=== PATIENT | female | born 1955 | race Caucasian/White ===

== ENCOUNTER 2019-10-22 15:37 | Emergency (ER) | payer BC, SELFPAY ==
[2019-10-22 15:38] VITALS: BP 169/75; PULSE 68; RESP 16; TEMP 38.2; O2SAT 95; BMI 26.4
--- NOTE | 2019-10-22 16:08 | HMH.EDUTC ---
[facility] Disposition Clinical Impression: Acute diarrhea, Fever in adult Upper respiratory infection Qualifiers: URI type: unspecified URI Qualified Code(s): J06.9 - Acute upper respiratory infection, unspecified Disposition: Home, Self-Care Condition on Discharge: Good Instructions: Diarrhea, DI for Nausea -- Adult, Preventing the Spread of Coronavirus Discharge Instructions Additional Instructions: *Monitor Temp, Over the counter Motrin or Tylenol as directed/as needed Tylenol every 4 hours and Motrin every 6 hours (as long as your family doctor has told you that you can take it) for fever or pain. and straight to ER if unable to lower temp less than 101.0 after medication given *Warm salt water gargles may help to soothe the throat *Throat Lozenges *Warm fluids like tea with honey may help to soothe the throat *Sleep elevated *Humidifier/Vaporizer Your throat swab was sent for culture. Those results are typically sent to your primary care. Be sure to follow up in 2-3 days with your family doctor/primary care physician if no improvement so they can review those result and treat if necessary. If you don?t have a primary care doctor, I recommend you get one but in the mean time, you will have to return to a walk in clinic Follow up IMMEDIATELY for new or worsening symptoms or no Noticeable improvement over the next 48-72 hours. 911 for difficulty breathing or swallowing ? Drink extra fluids with and between meals. If you have difficulty drinking, try very small amounts of water or suck on ice chips. ? Avoid fruit juices, as these do not replace minerals and can actually increase diarrhea. ? Children and adults can use sports drinks to replenish electrolytes. Younger children and infants should use products formulated for children, like oral rehydration solutions. ? Eat food in small amounts and let your stomach recover. ? Get lots of rest. You may feel tired or weak. ? No greasy or fried foods for the next 24-48 hours BRAT diet Bananas Rice Apples and [place] ? Make sure to drink plenty of liquids ? Return if needed ? Straight to ER if any life threatening symptoms ? You was given an outpatient order for diarrhea panel, please collect specimen and bring back to outpatient lab then call back to the [facility] or follow up with family doctor for results ? Follow up with family doctor in the next 48-72 hours if no improvement or any worsening of symptoms GO HOME, SELF QUARANTINE UNTIL RESULT BACK FROM COVID19 TEST AND THEY ARE NEGATIVE YOU WAS GIVEN HANDOUT WITH INSTRUCTIONS, MAKE SURE TO FOLLOW THOSE CALL BACK TO [facility] ON SUNDAY FOR YOUR TEST RESULTS Prescriptions: Azithromycin [Z-Miky 250mg Tab] 250 mg PO DIRECTED #6 tab Transmission Status: Pending to [facility] #[id number] Referrals: Zeferino Jacinto [Primary Care Provider] - As needed Time of Disposition: 16:44 Medical Decision Making - Prosper Inquiry Pt receiving controlled substance: No Prosper was queried for this patient: No Vital Signs: 10/22/19 15:38 Temperature 100.8 F H Temperature Source Oral Pulse Rate [Right] 68 Respiratory Rate 16 Blood Pressure [Right Arm] 169/75 H Blood Pressure Mean [Right Arm] 106 02 Sat by Pulse Oximetry 95 - Lab Data Lab results reviewed: Yes: I reviewed the patient's lab results. Lab Results 10/22/19 16:08: Influenza Type A Ag Negative, Influenza Type B Ag Negative 10/22/19 16:08: Strep Scn Rapid Clinic Negative Orders (Tests/Meds): ED MEDICATIONS Discontinued Medications Generic Name Dose Route Start Last Admin Trade Name Freq PRN Reason Stop Dose Admin Acetaminophen 650 mg 10/22/19 16:24 10/22/19 16:26 Acetaminophen 325mg Tab PO 10/22/19 16:25 650 mg ONCE ONE Administration Ibuprofen 800 mg 10/22/19 16:23 10/22/19 16:26 Motrin 400mg Tablet PO 10/22/19 16:24 800 mg ONCE ONE Administration Ondansetron HCl 4 mg 10/22/19 16:23 10/22/19 16:26 Zofran 4mg Odt SL 10/22/19 16:24 4 mg ON
[2019-10-22 16:22] LABS: UTC Influenza A Antigen Negative (Negative); UTC Strep Screen (Rapid) Negative (Negative)
[2019-10-22 16:23] LABS: UTC Influenza B Antigen Negative (Negative)
[2019-10-22 16:57] VITALS: BP 150/89; PULSE 65; RESP 20; TEMP 36.8; O2SAT 98
[2019-10-24 17:49] LABS: Covid-19 Nasal PCR Sendout Lex Not Detected
== END 2019-10-22 16:57 | disposition home or self-care (01) ==
PROVIDERS: Emergency Provider Nurse Practitioner; PCP Family Medicine
DX: J06.9 Acute upper respiratory infection, unspecified (principal); I10 Essential (primary) hypertension; Z20.828 Contact with and (suspected) exposure to other viral communicable diseases
CPT/HCPCS: 87804; 87880; 99202; U0004

== ENCOUNTER 2021-01-08 18:05 | Inpatient (IN) | payer BC, MEDICARE, SELFPAY ==
[2021-01-08] VITALS (11 sets, daily range): BP systolic 147–194; BP diastolic 83–109; PULSE 54–67; RESP 16–22; TEMP 36.7–37; O2SAT 94–99; BMI 27.3; BMI 27.4
--- NOTE | 2021-01-08 18:14 | XR_ITS ---
PROCEDURE INFORMATION: Exam: XR Chest Exam date and time: 01/08/2021 6:14 PM Age: 65 years old Clinical indication: Shortness of breath; Additional info: SOA TECHNIQUE: Imaging protocol: XR of the chest. Views: 2 views. COMPARISON: No relevant prior studies available. FINDINGS: Tubes, catheters and devices: Prominent azygos arch, suggestive of increased intravascular volume and/or increased central venous pressures. Lungs: Low lung volumes with diffuse reticular interstitial thickening. Streaky bibasal opacities, compatible with subsegmental atelectasis. No segmental consolidation. Pulmonary vascular congestion with mild interstitial pulmonary edema. Pleural spaces: Trace bilateral pleural effusions. Heart/Mediastinum: Global cardiomegaly. Bones/joints: No acute osseous abnormality. Soft tissues: Unremarkable. IMPRESSION: 1. Pulmonary vascular congestion with mild interstitial pulmonary edema and trace bilateral pleural effusions, likely cardiogenic. 2. Prominent azygos arch, suggestive of increased intravascular volume and/or increased central venous pressures. 3. Diffuse reticular interstitial thickening, compatible with viral or atypical pneumonia vs interstitial lung disease.
[2021-01-08 18:26] LABS: Basophils % 0.6 % (0.1-2.0); Eosinophils # 0.2 K/mm3 (0.0-0.4); Eosinophils % 2.7 % (0.1-12.0); Hematocrit 38.4 % (37.0-47.0); Hemoglobin 12.8 g/dL (12.2-16.2); Lymphocytes # 2.4 K/mm3 (0.7-4.5); Lymphocytes % 39.1 % (10-50); Mean Corpuscular HGB Conc 33.5 g/dL (31.8-35.4); Mean Corpuscular Hemoglobin 29.6 pg (27.0-31.2); Mean Corpuscular Volume 88.3 fl (81-99); Mean Platelet Volume 10.5 fl (7.4-10.4); Monocytes # 0.4 K/mm3 (0.1-1.0); Monocytes % 6.2 % (1.7-9.3); Neutrophils # 3.2 K/mm3 (1.8-7.8); Neutrophils % 51.4 % (37.0-80.0); Platelet Count 147 K/mm3 (142-424); Red Blood Count 4.35 M/mm3 (4.20-5.40); Red Cell Distribution Width 14.1 % (11.5-17.5); White Blood Count 6.2 K/mm3 (4.8-10.8)
--- NOTE | 2021-01-08 18:35 | ECG_ITS ---
APPROVED REPORT Exam: Resting ECG HR:62 bpm ECG Measurements Heart Rate 62 AXES TX 150 P 55 QRSd 84 QRS -30 QT 450 T -4 QTc 456 Conclusion Normal sinus rhythm Possible Left atrial enlargement Left axis deviation RSR' or QR pattern in V1 suggests right ventricular conduction delay Abnormal ECG Electronically signed by : Edwin Kent MD 01/10/2021 20:42:08
[2021-01-08 18:40] LABS: Chloride 104 mmol/L (98-107); Potassium 3.5 mmoL/L (3.5-5.1); Sodium 140 mmol/L (136-145)
[2021-01-08 18:43] LABS: Albumin Level 3.9 g/dl (3.5-5.0); Albumin/Globulin Ratio 1.5 (1.1-1.8); Alkaline Phosphatase 90 U/L (38-126); Anion Gap 10.5 mEq/L (5-15); Bilirubin,Total 0.5 mg/dl (0.2-1.3); Blood Urea Nitrogen 19 mg/dl (7-17); Calcium 8.8 mg/dl (8.4-10.2); Carbon Dioxide 29 mmol/L (22.0-30.0); Creatinine Clearance Estimated 57 mL/min (50-200); Estimated Glomerular Filt Rate 100 ml/min (>60); GFR (African American) 121 ML/MIN (>60); Globulin 2.6 g/dL (1.3-3.2); Glucose 105 mg/dl (74-100); Total Protein,Serum 6.5 g/dl (6.3-8.2)
[2021-01-08 18:46] LABS: Alanine Aminotransferase 468 U/L (12-78); Aspartate Amino Transferase 321 U/L (14-36)
--- NOTE | 2021-01-08 18:49 | HMH.EDGENADL ---
ED Disposition Condition on Discharge: Fair - Critical Care Critical Care Time: No <Chauncey Mcgowan - Last Filed: 01/08/21 20:38> <Bry Palmer - Last Filed: 01/08/21 22:30> Clinical Impression: Elevated liver enzymes, Elevated troponin Congestive heart failure Qualifiers: Heart failure type: unspecified Heart failure chronicity: acute Qualified Code(s): I50.9 - Heart failure, unspecified Back pain Qualifiers: Back pain location: thoracic back pain Chronicity: acute Back pain laterality: bilateral Qualified Code(s): M54.6 - Pain in thoracic spine Hypertension Qualifiers: Hypertension type: primary hypertension Qualified Code(s): I10 - Essential (primary) hypertension Disposition: Admitted as Observation Referrals: Provider,Referral, [Primary Care Provider] - Attestation: On 01/08/21, the high probability of a clinically significant, sudden or life threatening deterioration of the following system(s) required my full and direct attention, intervention and personal management. The time I documented below is in addition to time spent performing reported procedures but includes the following listed in this critical care notation. Medical Decision Making - Prosper Inquiry Pt receiving controlled substance: No - Lab Data Result diagrams: 01/08/21 18:19 01/08/21 18:19 - Radiology Data #1 Image(s): Chest Image Reviewed: Yes I reviewed the patient's radiology image, Yes I have reviewed radiologist's interpretation - CONNER Score for Non-Stemi Age of Patient: 60-69 years old Heart Rate: 50-69 bpm Systolic Blood Pressure: 160-199 mmHg Serum Creatinine: 0.40-0.79 mg/dl CHF [place] Class: III-Pulmonary Edema Other Risk Factors: None Non-Stemi Risk Score: 114 <Chauncey Mcgowan - Last Filed: 01/08/21 20:38> - Lab Data Lab results reviewed: Yes: I reviewed the patient's lab results. Result diagrams: 01/08/21 18:19 01/08/21 18:19 - CT Data CT Scan: Chest Time Received: 21:[address] Reviewed: Yes: I have viewed the radiologist's interpretation Preliminary Findings: Abnormal (see report ) <Bry Palmer - Last Filed: 01/08/21 22:30> Vital Signs: 01/08/21 18:12 01/08/21 18:30 Temperature 98.6 F Temperature Source Oral Pulse Rate 60 Pulse Rate [Left] 60 Respiratory Rate 22 Blood Pressure 156/93 H Blood Pressure [Left Arm] 194/109 H Blood Pressure Mean 127 Blood Pressure Mean [Left Arm] 137 02 Sat by Pulse Oximetry 99 96 Oxygen Delivery Method Room Air - Lab Data Lab Results 01/08/21 18:19: WBC 6.2, RBC 4.35, Hgb 12.8, Hct 38.4, MCV 88.3, MCH 29.6, MCHC 33.5, RDW 14.1, Plt Count 147, MPV 10.5 H, Neut % (Auto) 51.4, Lymph % (Auto) 39.1, [place] % (Auto) 6.2, Eos % (Auto) 2.7, Baso % (Auto) 0.6, Neut # (Auto) 3.2, Lymph # (Auto) 2.4, [place] # (Auto) 0.4, Eos # (Auto) 0.2, Baso # (Auto) 0.0 01/08/21 18:19: Sodium 140, Potassium 3.5, Chloride 104, Carbon Dioxide 29, Anion Gap 10.5, BUN 19 H, Creatinine 0.60, Estimated Creat Clear 57, Estimated GFR 100, Est GFR ( Amer) 121, Glucose 105 H, Calcium 8.8, Total Bilirubin 0.5, AST 321 H*, ALT 468 H*, Alkaline Phosphatase 90, Troponin I < 0.01, Total Protein 6.5, Albumin 3.9, Globulin 2.6, Albumin/Globulin Ratio 1.5 01/08/21 18:19: NT-Pro-B Natriuret Pep 940 H 01/08/21 18:19: D-Dimer 1.12 H 01/08/21 18:19: TSH 0.74, Free T4 Index 2.9 L, Thyroxine (T4) 9.3, T3 Uptake 31 01/08/21 19:27: Urine Color Straw, Urine Appearance Clear, Urine pH 7.0, Ur Specific [place] 1.010, Urine Protein Trace, Urine Glucose (UA) Negative, Urine Ketones Negative, Urine Blood Negative, Urine Nitrate Negative, Urine Bilirubin Negative, Urine Urobilinogen 0.2, Ur Leukocyte Esterase Negative, Ur Squamous Epith Cells 3-5, Urine Bacteria Trace 01/08/21 20:34: SARS-CoV-2 (PCR) Not detected, Influenza A Untype (PCR) Not detected, Influenza Type B (PCR) Not detected 01/08/21 21:08: Troponin I 0.06 H Orders (Tests/Meds): ED MEDICATIONS Discontinued Medicatio
[2021-01-08 18:56] LABS: Troponin I < 0.01 ng/ml (0.00-0.034)
[2021-01-08 19:31] LABS: D-Dimer 1.12 ug/mL (0.0-0.5)
[2021-01-08 19:35] LABS: Microscopic, Urine URINE MICROSCOPIC (MICROSCOPIC)
[2021-01-08 19:36] LABS: Appearance,Urine CLEAR (Clear); Bilirubin,Urine Negative (Negative); Blood, Urine Negative (Negative); Color,Urine STRAW (Yellow); Glucose,Urine (UA) Negative (Negative); Ketones,Urine Negative (Negative); Leukocyte Esterase,Urine Negative (Negative); Nitrate,Urine Negative (Negative); Protein,Urine TRACE (Negative); Urobilinogen,Urine 0.2 EU/dl (0.2)
[2021-01-08 19:37] LABS: NT Pro Brain Natriuretic Pep. 940 pg/mL (0-125)
--- NOTE | 2021-01-08 19:44 | CT_ITS ---
PROCEDURE INFORMATION: Exam: CTA Chest With Contrast Exam date and time: 01/08/2021 7:44 PM Age: 65 years old Clinical indication: Shortness of breath; Additional info: SOA, elev d-dimer, R/O pe TECHNIQUE: Imaging protocol: Computed tomographic angiography of the chest with contrast. 3D rendering (Not supervised by radiologist): MIP and/or 3D reconstructed images were created by the technologist. Radiation optimization: All CT scans at this facility use at least one of these dose optimization techniques: automated exposure control; mA and/or kV adjustment per patient size (includes targeted exams where dose is matched to clinical indication); or iterative reconstruction. Contrast material: ISOVUE; Contrast volume: 70 ml; Contrast route: INTRAVENOUS (IV); COMPARISON: CR XR CHEST 2V 01/08/2021 6:16 PM FINDINGS: Pulmonary arteries: Dilated central pulmonary arteries. No pulmonary emboli. Aorta: Ascending aortic ectasia. Mild amount of calcified and non-calcified arterial atherosclerosis. Lungs: Interstitial pulmonary edema. Bronchial wall thickening. Patchy areas of ground-glass micronodularity. Calcified granuloma in the right lung apex compatible with chronic sequelae of prior granulomatous disease, with adjacent subcentimeter pneumatocele vs cavitary lesion. Pleural spaces: No pneumothorax. No pleural effusion. Heart: Global cardiomegaly. No interventricular septal deviation or abnormal RV:LV ratio to suggest right heart strain. No pericardial effusion. Three vessel coronary artery disease. Lymph nodes: Multiple mildly enlarged mediastinal and hilar lymph nodes, likely reactive. Liver: Interposition of colon between liver and diaphragm incidentally noted. Bones/joints: No acute fracture or malalignment. Soft tissues: Unremarkable. Other findings: No acute findings or suspicious mass lesions in the visualized upper abdomen. IMPRESSION: 1. Interstitial pulmonary edema with trace pleural effusion, likely cardiogenic. 2. Patchy areas of ground-glass micronodularity, compatible with viral or atypical pneumonia versus interstitial lung disease. Please see comments below. 3. Subcentimeter pneumatocele vs cavitary lesion, indeterminate in the setting of interstitial pulmonary edema. Recommend correlation with prior imaging if available or follow up imaging after acute disease is resolved. 4. Dilated central pulmonary arteries, suggestive of longstanding pulmonary hypertension. No evidence of pulmonary embolism. 5. Three vessel coronary artery disease. 6. Interposition of colon between liver and diaphragm incidentally noted, which can be seen with Chilaiditi syndrome. Please correlate with patient history and symptoms. COMMENTS: Pulmonary findings described above are not typical for imaging features of COVID-19 pneumonia, although do not exclude it. Other processes such as other viral pneumonias (i.e. influenza), organizing pneumonia, drug toxicity and connective tissue disease can cause a similar imaging pattern. (Reference: Devaughn) REFERENCES: Devaughn Garcia et al., Radiological Society of [place] Expert Consensus Statement on Reporting Chest CT Findings Related to COVID-19. Endorsed by the Society of Thoracic Radiology, the [place] [employer], and RSNA. Published July 30, 2019.
[2021-01-08 19:45] LABS: Triiodothryronine (T3) Uptake 31 % (23.5-40.5)
[2021-01-08 19:46] LABS: Free Thyroxine Index 2.9 ug/dL (5.93-13.13); T4 (Thyroxine) 9.3 ug/dl (5.53-11.0)
[2021-01-08 19:51] LABS: Bacteria,Urine Trace /lpf
[2021-01-08 20:00] LABS: Thyroid Stimulating Hormone 0.74 uIU/mL (0.465-4.68)
[2021-01-08 20:39] LABS: Coronavirus 19, PCR Not Detected (NotDetected); Influenza A, PCR Not Detected (NotDetected); Influenza B, PCR Not Detected (NotDetected)
[2021-01-08 21:35] LABS: Troponin I 0.06 ng/ml (0.00-0.034)
--- NOTE | 2021-01-08 22:20 | PC.NURSE ---
zaid on phone with dr patel
--- NOTE | 2021-01-08 23:15 | PC.NURSE ---
patient up to floor via wheelchair.
[2021-01-09] VITALS (14 sets, daily range): BP systolic 132–166; BP diastolic 74–94; PULSE 50–65; RESP 16–22; TEMP 36.6–36.9; O2SAT 94–99; BMI 27.3
--- NOTE | 2021-01-09 | IR_ITS ---
APPROVED REPORT Patient Location: Inpatient Pleat Taper: DEONNA Sim RT (R) PROCEDURES 1. Left heart catheterization 2. Selective coronary arteriography 3. Left ventriculography INDICATION 1. Non-Q wave myocardial infarction, 2. Abnormal EKG SCAI INDICATION Patient is a 65-year-old white female who presented with chest pain. Also with shortness of breath. Non-Q wave myocardial infarction. Abnormal EKG. Secondary to this referred for left heart catheterization Informed consent was obtained prior to the procedure. COMPLICATIONS None Estimated Blood Loss: Less than 10 mls TECHNIQUE One percent lidocaine was used to anesthetize the right groin. The right femoral artery was accessed via the Seldinger technique. A 4-Slovak sheath was placed in the right femoral artery. The JL-4 and JR-4 catheter was also used to perform left heart catheterization left ventriculogram and selective coronary angiogram. At the end of the procedure the patient was transferred to the post-op holding area in stable condition for arterial sheath removal. ANGIOGRAPHIC RESULTS The left main artery Long. Smooth 20 to 30% distal stenosis The left anterior descending artery With mild calcification of the proximal vessel. Smooth 20% mid stenosis. Normal flow into the distal vessel The circumflex artery Small in size and nondominant. Smooth 30% proximal stenosis. There was also a ramus intermedius with smooth 30% ostial stenosis. Normal flow into the distal vessel The right coronary artery Was huge and dominant. The right coronary artery had an eccentric smooth 20% proximal stenosis. Smooth 20% diffuse proximal stenosis in the posterior lateral branch which was a very large artery. The posterior descending artery was moderate in size and angiographically normal The CHRISTIAN ventriculogram reveals Normal left ventricular systolic function with an ejection fraction of 60% The left ventricular end-diastolic pressure 12 Right common retrograde femoral arteriogram performed. Sheath placed in the right common femoral artery. Secondary to this an Angio-Seal device was deployed without difficulty IMPRESSION 1. Mild diffuse coronary artery disease 2. Mild smooth distal left main coronary artery stenosis 3. Mild diffuse coronary calcification 4. Normal left ventricular systolic function 5. Normal left ventricular end-diastolic pressure 6. Successful placement of an Angio-Seal device in the right common femoral artery PLAN 1. Patient will continue with medical therapy. Look for noncardiac causes as the reason for the leak of troponin. The left ventricular function on LV gram appears to be normal with no anterior wall motion abnormality. This therefore would not be consistent with broken heart. May consider a pulmonary source. Echocardiogram can be obtained. No intervention needed at this time. Continue aggressive medical therapy Electronically signed by : Jason Mackenzie MD 01/09/2021 13:11:25
--- NOTE | 2021-01-09 02:58 | PC.NURSE ---
Pt is A/O x4. Pt denies any pain, N/V t/o shift. Pt can independently ambulate to bathroom. IV is patent infusing NS @ 50ml/hr. VSS, pt is able to make needs known to staff. No concerns at this time.
[2021-01-09 07:47] LABS: Basophils % 0.5 % (0.1-2.0); Eosinophils # 0.1 K/mm3 (0.0-0.4); Eosinophils % 1.8 % (0.1-12.0); Hematocrit 36.4 % (37.0-47.0); Hemoglobin 12.1 g/dL (12.2-16.2); Lymphocytes # 2.1 K/mm3 (0.7-4.5); Lymphocytes % 27.4 % (10-50); Mean Corpuscular HGB Conc 33.2 g/dL (31.8-35.4); Mean Corpuscular Hemoglobin 29.3 pg (27.0-31.2); Mean Corpuscular Volume 88.2 fl (81-99); Monocytes # 0.4 K/mm3 (0.1-1.0); Monocytes % 5.6 % (1.7-9.3); Neutrophils # 4.9 K/mm3 (1.8-7.8); Neutrophils % 64.8 % (37.0-80.0); Platelet Count 148 K/mm3 (142-424); Red Blood Count 4.12 M/mm3 (4.20-5.40); Red Cell Distribution Width 14.3 % (11.5-17.5); White Blood Count 7.6 K/mm3 (4.8-10.8)
[2021-01-09 07:56] LABS: Anion Gap 13.2 mEq/L (5-15); Blood Urea Nitrogen 12 mg/dl (7-17); Calcium 8.6 mg/dl (8.4-10.2); Carbon Dioxide 29 mmol/L (22.0-30.0); Chloride 102 mmol/L (98-107); Cholesterol 184 mg/dl (140-200); Creatinine Clearance Estimated 57 mL/min (50-200); Estimated Glomerular Filt Rate 123 ml/min (>60); GFR (African American) 149 ML/MIN (>60); Glucose 104 mg/dl (74-100); HDL Cholesterol 37 mg/dl (40-60); Potassium 3.2 mmoL/L (3.5-5.1); Sodium 141 mmol/L (136-145); Triglycerides 182 mg/dl (30-150); VLDL Cholesterol 36 mg/dL (0-40)
[2021-01-09 08:07] LABS: Direct LDL Cholesterol 98.49 mg/dL (100-129)
--- NOTE | 2021-01-09 08:50 | HMH.HP ---
*Admission Date: 01/08/21 *Chief complaint: Shortness of breath *History of present illness: 65-year-old female with personal medical history of hypertension and a tachyarrhythmia presented to the emergency department with 4 days of dyspnea on exertion, paroxysmal nocturnal dyspnea, two-pillow orthopnea. Patient had an associated episode of tightness in her thoracic back in a bandlike pattern between her shoulder blades and this was the final straw that led to her seeking medical attention. She denies nausea, diaphoresis, pedal edema. She takes her antihypertensives as prescribed but is overdue for a visit with her primary care physician, Dr. Zeferino Jacinto. In the emergency department patient had a negative troponin followed by an indeterminate troponin and decision was made to keep the patient for observation and serial troponins. There were no significant EKG changes. Chest x-ray and CT scan of the chest were consistent with hypervolemia. Patient herself underwent left heart catheterization approximately 7 years ago. She had nonobstructive coronary artery disease at that time Family history is significant for a father who had a heart attack at age 61. She has a brother and an uncle who had valvular heart disease. [facility] History I have reviewed the patient's past medical history: Yes Medical History: Reports:: Cancer (Cervical cancer- 1995), Hypertension Denies:: Diabetes Mellitus Type 1, Diabetes Mellitus Type 2, MRSA *Have you ever received a pneumonia vaccine?: No *Have you received a flu vaccine this season?: No Other Medical History: Reports: Arthritis Laterality Cases: Bilateral: Tonsillectomy, Total Hip Replacement Other Surgeries: Yes: , Tubal Ligation Amputation: No Fractures: No - *Social History Last grade of school completed: Some college Smoking Status: Former smoker Tobacco Type: cigarettes Alcohol Intake: never *Occupational Status:: retired Housing: house Household Members: spouse *Travel in the last 8 weeks: None Family Hx:: No significant family history Review of Systems - Review of Systems Review of systems:: pertinent systems reviewed and negative unless documented below Meds Home Medications Medication Instructions Recorded Confirmed Type Lisinopril/Hydrochlorothiazide 10 mg PO DAILY 10/22/19 01/08/21 History [Lisinopril-Hctz 10-12.5 mg Tab] Metoprolol Succinate [Metoprolol 50 mg PO DAILY 10/22/19 01/08/21 History Succinate 50mg Tablet*] Ascorbic Acid [Vitamin C] 500 mg PO DAILY 01/08/21 01/08/21 History Aspirin [Aspirin 325mg Tab] 325 mg PO DAILY 01/08/21 01/08/21 History Biotin 800 mcg PO DAILY 01/08/21 01/08/21 History Cholecalciferol (Vitamin D3) 400 unit PO DAILY 01/08/21 01/08/21 History [Vitamin D3] Allergies Allergy/AdvReac Type Severity Reaction Status Date / Time Penicillins Allergy Verified 10/22/19 16:08 Exam Vital signs and Labs for Last 24 Hours: Temp Pulse Resp BP Pulse Ox 98.5 F 59 L 20 146/76 H 95 01/09/21 08:00 01/09/21 08:00 01/09/21 08:00 01/09/21 08:00 01/09/21 08:00 Laboratory Results - last 24 hr 01/08/21 18:19: WBC 6.2, RBC 4.35, Hgb 12.8, Hct 38.4, MCV 88.3, MCH 29.6, MCHC 33.5, RDW 14.1, Plt Count 147, MPV 10.5 H, Neut % (Auto) 51.4, Lymph % (Auto) 39.1, [place] % (Auto) 6.2, Eos % (Auto) 2.7, Baso % (Auto) 0.6, Neut # (Auto) 3.2, Lymph # (Auto) 2.4, [place] # (Auto) 0.4, Eos # (Auto) 0.2, Baso # (Auto) 0.0 01/08/21 18:19: Sodium 140, Potassium 3.5, Chloride 104, Carbon Dioxide 29, Anion Gap 10.5, BUN 19 H, Creatinine 0.60, Estimated Creat Clear 57, Estimated GFR 100, Est GFR ( Amer) 121, Glucose 105 H, Calcium 8.8, Total Bilirubin 0.5, AST 321 H*, ALT 468 H*, Alkaline Phosphatase 90, Troponin I < 0.01, Total Protein 6.5, Albumin 3.9, Globulin 2.6, Albumin/Globulin Ratio 1.5 01/08/21 18:19: NT-Pro-B Natriuret Pep 940 H 01/08/21 18:19: D-Dimer 1.12 H 01/08/21 18:19: TSH 0.74, Free T4 Index 2.9 L, Thyroxine (T4) 9.3, T3 [place]
--- NOTE | 2021-01-09 10:08 | PC.NURSE ---
paged Dr. Loredo for consult.
--- NOTE | 2021-01-09 10:12 | PC.NURSE ---
notified Dr. Loredo about consult.
--- NOTE | 2021-01-09 10:25 | PC.NURSE ---
1011 - Spoke to Dr. Loredo via phone, states he will talk to Dr. Mackenzie about performing heart cath today. Spoke w/ pt, she is agreeable to have heart cath done today. Awaiting call back from cardiology.
--- NOTE | 2021-01-09 11:57 | PC.NURSE ---
Spoke to Dr. Loredo @ this time, states that pt will be cathed @ [address] Mackenzie. delivery driver/supervisor Lolly Farnsworth RN made aware @ this time
--- NOTE | 2021-01-09 12:05 | PC.NURSE ---
Notified by Primary RN to call the center medical and lab director team in for heart cath at 1300. Paged team at [phone] calls returned: Josh [phone] Keisha [phone]
--- NOTE | 2021-01-09 12:37 | HMH.PHAVTE ---
[facility] Pharmacy VTE Monitoring - Patient Demographics Admission date: 01/08/21 Report Date: 01/09/21 Time: 12:37 Allergies/Adverse Reactions: Patient Allergies Penicillins Allergy (Verified 10/22/19 16:08) Height: 1.55 m Weight: 65.856 kg Patient Problems: Current Active Problems Congestive heart failure (Acute) Elevated liver enzymes (Acute) Back pain (Acute) Elevated troponin (Acute) Hypertension (Acute) Non-ST elevation [place] (NSTEMI) (Acute) Acute congestive heart failure (Acute) - VTE Risk Labs: VTE Related Lab Results Hgb 12.1 g/dL (12.2-16.2) L 01/09/21 06:43 Hct 36.4 % (37.0-47.0) L 01/09/21 06:43 Plt Count 148 K/mm3 (142-424) 01/09/21 06:43 BUN 12 mg/dl (7-17) D 01/09/21 06:43 Creatinine 0.50 mg/dl (0.52-1.04) L 01/09/21 06:43 Estimated Creat Clear 57 mL/min (50-200) 01/09/21 06:43 Was VTE Risk Assessment Performed: No VTE Score: 1 VTE Risk Level: Very Low Risk - Prophylaxis VTE Prophylaxis Ordered?: Yes Types of VTE Prophylaxis: TEDS Knee High, Pharmacological Location of Applied Device: Bilateral Lower Extremeties Pharmacologic Type: Enoxaparin
--- NOTE | 2021-01-09 12:37 | HMH.PHAINT ---
MEDICATION RECONCILIATION COMPLETED ON PATIENT USING EXTERNAL FILL HISTORY FROM PHARMACY. -SOFIA WISEMAN, EVAD
--- NOTE | 2021-01-09 13:14 | PC.NURSE ---
1312 received report from Romy Collazo RN
[2021-01-12 08:23] LABS: Hep A Ab, IgM Negative (Negative); Hepatitis B Core Antibody IgM Negative (Negative); Hepatitis B Surface Antigen Negative (Negative); Hepatitis C Antibody <0.1 s/co ratio (0.0-0.9)
--- NOTE | 2021-01-18 14:10 | HMH.DCSUM ---
General - General Admission date:: 01/08/21 Discharge date: 01/09/21 HPI HPI: 65-year-old female with personal medical history of hypertension and a tachyarrhythmia presented to the emergency department with 4 days of dyspnea on exertion, paroxysmal nocturnal dyspnea, two-pillow orthopnea. Patient had an associated episode of tightness in her thoracic back in a bandlike pattern between her shoulder blades and this was the final straw that led to her seeking medical attention. She denies nausea, diaphoresis, pedal edema. She takes her antihypertensives as prescribed but is overdue for a visit with her primary care physician, Dr. Zeferino Jacinto. In the emergency department patient had a negative troponin followed by an indeterminate troponin and decision was made to keep the patient for observation and serial troponins. There were no significant EKG changes. Chest x-ray and CT scan of the chest were consistent with hypervolemia. Patient herself underwent left heart catheterization approximately 7 years ago. She had nonobstructive coronary artery disease at that time Family history is significant for a father who had a heart attack at age 61. She has a brother and an uncle who had valvular heart disease. Hospital Course Hospital Course: Patient was admtted with ACS. She underwetn [facility] on [facility]09 with findings as follows: MPRESSION 1. Mild diffuse coronary artery disease 2. Mild smooth distal left main coronary artery stenosis 3. Mild diffuse coronary calcification 4. Normal left ventricular systolic function 5. Normal left ventricular end-diastolic pressure 6. Successful placement of an Angio-Seal device in the right common femoral artery PLAN 1. Patient will continue with medical therapy. Look for noncardiac causes as the reason for the leak of troponin. The left ventricular function on LV gram appears to be normal with no anterior wall motion abnormality. This therefore would not be consistent with broken heart. May consider a pulmonary source. Echocardiogram can be obtained. No intervention needed at this time. Continue aggressive medical therapy CXR and CTA Chest were normal. Patient was discharged to home in stable condition later on 01/09. She will f/u with her PCP in 2 days Objective Vital signs: Temp Pulse Resp BP Pulse Ox 98.0 F 54 L 16 136/87 99 01/09/21 13:45 01/09/21 14:30 01/09/21 14:30 01/09/21 14:30 09/05/21 14:30 DS: Diagnosis - Discharge Diagnosis (1) Non-ST elevation AK (NSTEMI) Status: Acute (2) Acute congestive heart failure Status: Acute (3) Elevated liver enzymes Status: Acute (4) Hypertension Status: Acute Discharge Plan - Patient Discharge Instructions ACTIVITY: Continue current activity DIET: continue same diet Patient Instructions: Congestive Heart Failure (Alternative Therapy), Hypertension (Alternative Therapy) - Follow up Plan Follow up with: Garfield Trent [Referring] - (Call Sunday during business hours to schedule appointment.) Vamsi Loredo MD [Staff Physician] - 1 week (Call Sunday during business hours to schedule appointment.) Disposition: Home, Self-Care Condition at discharge:: Stable Home Medications: Home Medications Medication Instructions Recorded Confirmed Type Ascorbic Acid [Vitamin C] 500 mg PO DAILY 01/08/21 01/08/21 History Biotin 800 mcg PO DAILY 01/08/21 01/08/21 History Cholecalciferol (Vitamin D3) 400 unit PO DAILY 01/08/21 01/08/21 History [Vitamin D3] Aspirin [Aspirin 81mg EC Tab] 81 mg PO DAILY 01/09/21 Rx Clopidogrel Bisulfate [Plavix 75mg 75 mg PO DAILY #30 tab 01/09/21 Rx Tab] Metoprolol Tartrate [Lopressor 50 mg PO BID 01/09/21 01/09/21 History 50mg tablet] lisinopriL [Lisinopril] 40 mg PO DAILY #30 tab 01/09/21 Rx Prescriptions/Medication Reconciliation: New Clopidogrel Bisulfate [Plavix 75mg Tab] 75 mg PO DAILY #30 tab Aspirin [Aspiri
== END 2021-01-09 15:24 | disposition home or self-care (01) | DRG 282 ==
LOC: ER 22:30 → 2ND 23:02
PROVIDERS: Emergency Medicine; Internal Medicine; Admitting Provider Family Medicine; Emergency Provider Emergency Medicine; Visit Provider Family Medicine
DX: I11.0 Hypertensive heart disease with heart failure (principal); I21.A1 Myocardial infarction type 2; I50.9 Heart failure, unspecified; Z20.822 Contact with and (suspected) exposure to COVID-19; Z85.41 Personal history of malignant neoplasm of cervix uteri; M19.90 Unspecified osteoarthritis, unspecified site; Z87.891 Personal history of nicotine dependence; Z96.649 Presence of unspecified artificial hip joint; I25.10 Atherosclerotic heart disease of native coronary artery without angina pectoris; J45.909 Unspecified asthma, uncomplicated
CPT/HCPCS: 36415; 71046; 71275; 80048; 80053; 80061; 80074; 81001; 83880; 84436; 84443; 84479; 84484; 85025; 85378; 93005; 93458; 99152; 99285; C1725; C1760; C1769; J1644; Q9967; U0003

== ENCOUNTER 2023-02-09 10:45 | Emergency (ER) | payer MEDICARE, SELFPAY ==
[2023-02-09 11:15] VITALS: BP 127/76; PULSE 68; RESP 18; TEMP 37.2; O2SAT 98; BMI 23.6
--- NOTE | 2023-02-09 11:18 | XR_ITS ---
FINAL REPORT CLINICAL HISTORY: CONGESTION cough x 4-5 days non smoker COMPARISON: 01/08/2021 FINDINGS: Two views of the chest were obtained. The heart size and pulmonary vascularity are within normal limits. The mediastinum is normal. No acute pulmonary abnormality is identified. There is no pneumothorax. The bony thorax is intact. IMPRESSION: No active cardiopulmonary disease. Reviewed, Interpreted and Dictated by Tonio Blank III, MD Transcribed by Consuelo Truong Authenticated and [facility]
--- NOTE | 2023-02-09 11:19 | EXP.UTC ---
Discharge Plan Disposition Patient Disposition: Home, Self-Care Condition: Good Prescriptions Prescriptions: New benzonatate [benzonatate] 100 mg capsule 100 mg PO TIDP PRN (Reason: Cough) Qty: 30 0RF methylprednisolone 4 mg Tablets,Dose Pack 4 mg PO DIRECTED Qty: 21 0RF cefdinir 300 mg capsule 300 mg PO BID Qty: 20 0RF No Action biotin 800 MCG tablet 800 mcg PO DAILY cholecalciferol (vitamin D3) 400 UNIT capsule 400 unit PO DAILY ascorbic acid (vitamin C) 500 MG capsule 500 mg PO DAILY aspirin 81 MG tablet,delayed release (DR/EC) 81 mg PO DAILY 0RF furosemide 40 mg tablet 40 mg PO DAILY sotalol 80 mg tablet 80 mg PO DAILY amlodipine 10 mg tablet 10 mg PO DAILY Eliquis 5 mg tablet 5 mg PO DAILY Referrals Follow up/Referrals: Edwin Hoyos MD [Primary Care Provider] - See instructions Activity Restrictions/Add. Instructions Additional Instructions/Restrictions: Drink plenty of fluids. Take tylenol or ibuprofen for pain or fever. Take the medications as directed. Follow up with your regular doctor. GO TO THE ER FOR ANY WORSENING SYMPTOMS Clinical Impressions Clinical Impression: Acute bronchitis Instructions Patient Instructions: Acute Bronchitis, DI for Acute Bronchitis Discharge ED Provider: Erickson Topete [facility] General Stated complaint: cough, having trouble sleeping Time Seen by Provider: 02/09/23 11:19 History of Present Illness Provider Complaint: She states that for the past 1 week she has had worsening cough and chest congestion. She has a history of copd. Related Data Home Medications Medication Instructions Recorded Confirmed ascorbic acid (vitamin C) 500 mg 500 mg PO DAILY Diet supplement 01/08/21 01/08/21 capsule biotin 800 mcg tablet 800 mcg PO DAILY Diet supplement 01/08/21 01/08/21 cholecalciferol (vitamin D3) 10 400 unit PO DAILY Diet supplement 01/08/21 01/08/21 mcg (400 unit) capsule amlodipine 10 mg tablet 10 mg PO DAILY . 02/09/23 02/09/23 apixaban 5 mg tablet (Eliquis) 5 mg PO DAILY blood thinner 02/09/23 02/09/23 furosemide 40 mg tablet 40 mg PO DAILY Fluid 02/09/23 02/09/23 sotalol 80 mg tablet 80 mg PO DAILY . 02/09/23 02/09/23 Previous Rx's Medication Instructions Recorded aspirin 81 mg tablet,delayed 81 mg PO DAILY 01/09/21 release benzonatate 100 mg capsule 100 mg PO TIDP PRN Cough #30 caps 02/09/23 cefdinir 300 mg capsule 300 mg PO BID #20 caps 02/09/23 methylprednisolone 4 mg tablets in 4 mg PO DIRECTED #21 tabs 02/09/23 a dose pack Allergies Allergy/AdvReac Type Severity Reaction Status Date / Time Penicillins Allergy Verified 02/09/23 11:21 povidone-iodine Allergy Verified 02/09/23 11:21 [From Betadine] acetaminophen [From Percocet] AdvReac Nausea Verified 02/09/23 11:25 hydrocodone AdvReac Nausea Verified 02/09/23 11:25 oxycodone [From Percocet] AdvReac Nausea Verified 02/09/23 11:25 PFSH PFSH Disclaimer: The information contained in this section may have been updated after the patient was seen, as this information can be updated by other users. Social History Smoking Status: Former smoker tobacco type: cigarettes alcohol intake: never current occupational status: retired Travel in the last 8 weeks: None household members: spouse housing: house caffeine: No ROS Obtained: Yes All systems reviewed & no additional complaints except as documented Constitutional Constitutional: Reports poor appetite Eyes Eyes: Reports system reviewed and no additional complaints, except as documented ENT Ears, Nose, Mouth, and Throat: Reports as per HPI Cardiovascular Cardiovascular: Reports system reviewed and no additional complaints, except as documented and Denies chest pain Respiratory Respiratory: Denies shortness of breath, Reports chest congestion, Reports cough, [place]
--- NOTE | 2023-02-09 11:28 | PC.NURSE ---
pt went to rad
[2023-02-09 12:16] VITALS: BP 127/73; PULSE 68; RESP 18; TEMP 37.2; O2SAT 98
== END 2023-02-09 12:16 | disposition home or self-care (01) ==
PROVIDERS: Emergency Provider Nurse Practitioner Family; PCP Family Medicine
DX: J20.9 Acute bronchitis, unspecified (principal); Z87.09 Personal history of other diseases of the respiratory system; Z87.891 Personal history of nicotine dependence
CPT/HCPCS: 71046; 87635; 99204; 99212; G0463

== ENCOUNTER 2023-04-07 11:11 | Emergency (ER) | payer MEDICARE, SELFPAY ==
[2023-04-07 12:40] VITALS: BP 136/93; PULSE 91; RESP 20; TEMP 37.3; O2SAT 95; BMI 27.3
--- NOTE | 2023-04-07 13:10 | EXP.UTC ---
Discharge Plan Disposition Patient Disposition: Home, Self-Care Condition: Good Prescriptions Prescriptions: New prednisone [prednisone] 20 mg tablet 20 mg PO BID 3 Days Qty: 6 0RF No Action biotin 800 MCG tablet 800 mcg PO DAILY cholecalciferol (vitamin D3) 400 UNIT capsule 400 unit PO DAILY ascorbic acid (vitamin C) 500 MG capsule 500 mg PO DAILY aspirin 81 MG tablet,delayed release (DR/EC) 81 mg PO DAILY 0RF furosemide 40 mg tablet 40 mg PO DAILY sotalol 80 mg tablet 80 mg PO DAILY amlodipine 10 mg tablet 10 mg PO DAILY Eliquis 5 mg tablet 5 mg PO DAILY Referrals Follow up/Referrals: Edwin Hoyos MD [Primary Care Provider] - See instructions Activity Restrictions/Add. Instructions Additional Instructions/Restrictions: Tylenol and ibuprofen as needed for pain or fever Humidifier/vaporizer/hot steamy shower Follow-up with primary care sunday. Follow-up immediately in the ER of the [facility] for new or worsening symptoms or no noticeable improvement over the next 48-72 hours. Stop smoking Start steroids today. Helps with inflammation therefore coughing and wheezing. Follow directions on package. Clinical Impressions Clinical Impression: Acute bronchitis Qualifiers: Bronchitis organism: unspecified organism Qualified Code(s): J20.9 - Acute bronchitis, unspecified Instructions Patient Instructions: Acute Bronchitis Discharge ED Provider: Vince ([facility])Andre [facility] [place] H[place] General Stated complaint: cough,SOA Mode of Arrival: Ambulatory Source of Information: Patient Limitations: No Limitations Time Seen by Provider: 04/07/23 13:10 Description of Symptoms (Recalled from Triage Doc. by RN): Pt stated that she has had 2 asthma attacks in the last 2-3 days. She stated that coughing last night. She stated that its imitting noise when she breaths . HEENT Symptoms (Recalled from RN notes): Yes Resp Symptoms (Recalled from RN notes): No Skin Symptoms (Recalled from RN notes): No MS Symptoms (Recalled from RN notes): No Functional Status (Recalled from RN notes): n/a History of Present Illness Provider Complaint: 68 yr old female presents for cough. Pt stated that she has had 2 asthma attacks in the last 2-3 days. She stated that coughing last night. She stated that its imitting noise when she breaths . pt states she is having a ablation on tues for a fib Related Data Home Medications Medication Instructions Recorded Confirmed ascorbic acid (vitamin C) 500 mg 500 mg PO DAILY Diet supplement 01/08/21 01/08/21 capsule biotin 800 mcg tablet 800 mcg PO DAILY Diet supplement 01/08/21 01/08/21 cholecalciferol (vitamin D3) 10 400 unit PO DAILY Diet supplement 01/08/21 01/08/21 mcg (400 unit) capsule amlodipine 10 mg tablet 10 mg PO DAILY . 02/09/23 04/07/23 apixaban 5 mg tablet (Eliquis) 5 mg PO DAILY blood thinner 02/09/23 04/07/23 furosemide 40 mg tablet 40 mg PO DAILY Fluid 02/09/23 04/07/23 sotalol 80 mg tablet 80 mg PO DAILY . 02/09/23 04/07/23 Previous Rx's Medication Instructions Recorded aspirin 81 mg tablet,delayed 81 mg PO DAILY 01/09/21 release prednisone 20 mg tablet 20 mg PO BID 3 days #6 tabs 04/07/23 Allergies Allergy/AdvReac Type Severity Reaction Status Date / Time Penicillins Allergy Verified 04/07/23 12:55 povidone-iodine Allergy Verified 04/07/23 12:55 [From Betadine] acetaminophen [From Percocet] AdvReac Nausea Verified 04/07/23 12:55 hydrocodone AdvReac Nausea Verified 04/07/23 12:55 oxycodone [From Percocet] AdvReac Nausea Verified 04/07/23 12:55 Worker's Comp Is this a Worker's Comp case?: No [facility] Disclaimer: The information contained in this section may have been updated after the patient was seen, as this information can be updated by other users. Social History , [employer]) Smoking Status: Former smoker tobacco type: cigarettes a
--- NOTE | 2023-04-07 13:14 | XR_ITS ---
PROCEDURE INFORMATION: Exam: XR Chest Exam date and time: 04/07/2023 1:10 PM Age: 68 years old Clinical indication: Cough TECHNIQUE: Imaging protocol: Radiologic exam of the chest. Views: 2 views. COMPARISON: CR XR CHEST 2V 02/09/2023 11:21 AM FINDINGS: Lungs: Stable linear opacities in the right upper lobe consistent with chronic lung changes. No focal consolidation Pleural spaces: Unremarkable. No pleural effusion. No pneumothorax. Heart/Mediastinum: Unremarkable. No cardiomegaly. Bones/joints: Unremarkable. IMPRESSION: No focal consolidation
[2023-04-07 14:38] VITALS: BP 136/93; PULSE 91; RESP 18; TEMP 37.3; O2SAT 95
== END 2023-04-07 14:38 | disposition home or self-care (01) ==
PROVIDERS: Emergency Provider Nurse Practitioner Family; PCP Family Medicine
DX: J20.9 Acute bronchitis, unspecified (principal); R06.02 Shortness of breath; J45.909 Unspecified asthma, uncomplicated; I48.91 Unspecified atrial fibrillation; Z79.01 Long term (current) use of anticoagulants
CPT/HCPCS: 71046; 99212; 99214; G0463